=== PATIENT | female | born 1990 | race Caucasian/White ===

== ENCOUNTER 2016-10-24 20:16 | Inpatient (IN) | payer OTHER ==
[~2016-10-24] VITALS: Ht 180.3 cm; Wt 90.3 kg
[2016-10-24 20:55] LABS: BILIRUBIN NEGATIVE (NEGATIVE); BLOOD TRACE-INTACT Ery/uL (NEGATIVE); CLARITY CLOUDY (CLEAR); COLOR YELLOW (YELLOW); GLUCOSE (U) NORMAL (NORMAL); KETONE (U) TRACE mg/dL (NEGATIVE); LEUKOCYTES NEGATIVE Leu/uL (NEGATIVE); NITRITE NEGATIVE (NEGATIVE); PROTEIN NEGATIVE (NEGATIVE); SPECIFIC GRAVITY 1.025 (1.001-1.030)
[2016-10-24 21:05] LABS: MUCOUS MODERATE
[2016-10-24 21:06] LABS: HCT 35.6 % (37.0-47.0); HGB 11.6 g/dl (12.5-16.0); MCH 28.4 pg (25.0-31.0); MCHC 32.6 g/dL (32.0-36.0); MCV 87.3 fL (78.0-100.0); MPV 11.3 fL (6.0-9.5); RBC 4.08 M/uL (4.20-5.40); RDW 13.8 % (11.5-14.0); WBC 10.6 K/uL (4.0-10.5)
[2016-10-24 21:08] LABS: AMPHETAMINES NEGATIVE (NEGATIVE); BARBITURATES NEGATIVE (NEGATIVE); BENZODIAZEPINES NEGATIVE (NEGATIVE); COCAINE NEGATIVE (NEGATIVE); MARIJUANA (THC) NEGATIVE (NEGATIVE); METHADONE NEGATIVE (NEGATIVE); TRICYCLIC ANTIDEPRESSANT NEGATIVE (NEGATIVE)
[2016-10-27 07:09] LABS: HCT 25.5 % (37.0-47.0); HGB 8.4 g/dl (12.5-16.0); MCH 28.7 pg (25.0-31.0); MCHC 32.9 g/dL (32.0-36.0); MPV 10.7 fL (6.0-9.5); RBC 2.93 M/uL (4.20-5.40); RDW 13.9 % (11.5-14.0); WBC 9.8 K/uL (4.0-10.5)
== END 2016-10-28 10:30 | disposition home or self-care (01) | DRG 775 ==
LOC: FOB 20:16
PROVIDERS: Obstetrics & Gynecology; ADMIT Obstetrics & Gynecology
PROC: 0KQM0ZZ Repair Perineum Muscle, Open Approach (ICD-10-PCS; 2016-10-24)
PROC: 3E0P7GC Introduction of Other Therapeutic Substance into Female Reproductive, Via Natural or Artificial Opening (ICD-10-PCS; 2016-10-24)
PROC: 10907ZC Drainage of Amniotic Fluid, Therapeutic from Products of Conception, Via Natural or Artificial Opening (ICD-10-PCS; 2016-10-24)
PROC: 10E0XZZ Delivery of Products of Conception, External Approach (ICD-10-PCS; principal; 2016-10-26)
PROC: 4A1HX4Z Monitoring of Products of Conception, Cardiac Electrical Activity, External Approach (ICD-10-PCS; 2016-10-26)
PROC: 0HQ9XZZ Repair Perineum Skin, External Approach (ICD-10-PCS; 2016-10-26)
DX: O70.1 Second degree perineal laceration during delivery (principal); Z37.0 Single live birth; O62.2 Other uterine inertia; O28.3 Abnormal ultrasonic finding on antenatal screening of mother; N83.201 Unspecified ovarian cyst, right side; Q51.810 Arcuate uterus; Z3A.40 40 weeks gestation of pregnancy; Z87.891 Personal history of nicotine dependence
CPT/HCPCS: 36415; 80305; 81001; 88307; J2916; J3105